=== PATIENT | female | born 2000 | race Caucasian/White ===

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

== ENCOUNTER 2020-04-27 21:56 | Emergency (ER) | payer BC ==
[~2020-04-27] VITALS: Ht 152.4 cm; Wt 68.0 kg
[~2020-04-27 21:56] MED LIST changes: +BACTRIM 400-801 EACH PO; +LO LOESTRIN FE1 EACH PO
[2020-04-27] MEDS ORDERED: FLONASE ALLERG9.9 ML NAS (22:42)
[2020-04-27] MEDS ORDERED: ZITHROMAX250 MG PO (22:42)
[2020-04-27] MEDS ORDERED: ZYRTEC10 M2 PO (22:42)
== END 2020-04-27 22:59 | disposition home or self-care (01) ==
LOC: ED 21:56
DX: J06.9 Acute upper respiratory infection, unspecified (principal); Z79.899 Other long term (current) drug therapy

== ENCOUNTER 2021-04-26 18:22 | Emergency (ER) | payer BC ==
[~2021-04-26 18:22] MED LIST changes: +FLONASE ALLERG9.9 ML NAS; +ZITHROMAX250 MG PO; +ZYRTEC10 M2 PO
== END 2021-04-26 20:37 | disposition left against medical advice (07) ==
LOC: ED 18:22
DX: R43.8 Other disturbances of smell and taste (principal); Z53.21 Procedure and treatment not carried out due to patient leaving prior to being seen by health care provider